=== PATIENT | male | born 1955 ===

== ENCOUNTER → 2021-12-15 09:01 | Outpatient (BNVA) | payer MEDICARE, SELFPAY | PROVIDERS: Referring Provider Family Medicine; Visit Provider Nurse Practitioner Family | DX: M67.441 Ganglion, right hand (principal) | CPT/HCPCS: 73130; 99213; 99214 ==

== ENCOUNTER → 2022-02-11 10:10 | Outpatient (BNVA) | payer MEDICARE, SELFPAY | PROVIDERS: Visit Provider Nurse Practitioner Family | DX: M79.641 Pain in right hand (principal) | CPT/HCPCS: 99214 ==

== ENCOUNTER 2022-03-04 10:11 | Day surgery (SDC) | payer MEDICARE, SELFPAY ==
[2022-03-02 13:16] VITALS: BMI 24.8
[2022-03-04] MEDS: sodium chloride 0.9% 1,000 ML 30 ML IV (10:51)
--- NOTE | 2022-03-04 11:24 | ANES.PREANE2 ---
Pre-Anesthetic Assessment Height/Weight: Height 1.68 m Weight 69.853 kg O2 Del Method 03/04/22 10:34 Preop Diagnosis: Ganglion cyst right hand Operation Date: 03/04/22 11:40 Proposed Procedures p Ganglion cyst removal: 34652,M67.40(Right) - Reddy Bolanos MD Familial anesthetic complications: None Was Beta Evert taken within 24 hours: N/A Was Clonidine taken within 24 hours: N/A Last intake: Intake Last Liquid Date 03/03/22 Last Liquid Time 22:30 Last Solid Date 03/03/22 Last Solid Time 22:30 Social Tobacco and No alcohol Exam alert, oriented x 3, clear to auscultation bilaterally and regular rate & rhythm Airway Mallampati: Class II Dentition: false CV/HEM Hypertension Anesthetic Plan ASA status: 2 Anesthesia: MAC Risk of > 500 ml blood loss (7ml/kg in children): No Medications/Allergies Home Medications Medication Instructions Recorded Confirmed Last Taken Type lisinopril 20 mg tablet 20 mg PO DAILY 12/15/21 03/04/22 03/04/22 History Allergies Allergy/AdvReac Type Severity Reaction Status Date / Time No Known Allergies Allergy Verified 03/02/22 13:14 Current Medications Generic Name Dose Route Start Last Admin Trade Name Freq PRN Reason Stop Dose Admin Sodium Chloride 1,000 mls @ 30 mls/hr 03/04/22 10:30 03/04/22 10:51 Sodium Chloride 0.9% IV 03/05/22 10:29 30 mls/hr .Q24H HALIE Administration PFSH Anesthesia Social History (Updated 12/15/21 @ 09:12 by Alta Talley LPN) Smoking and tobacco status: current every day smoker Quit status (tobacco): considering quitting Second hand smoke exposure: Yes Smoking risk assessment/counseling performed?: No Alcohol intake: never Adopted: No Caregiver/support person: No Lives independently: Yes Housing: House Number of children: 2 Number of grandchildren: 12 Highest education level completed: GED or Equivalent service: No Current occupational status: employed Current occupation: [employer] Current occupational exposures/hazards: No Pets and animals: No Sexually active: Yes Current gender identity: Male Special tomas needs: No Agree to transfusion: No Data Anesthesia : 03/04/22 10:55 BMP 03/04/22 10:55 Chloride 103 Carbon Dioxide 25 BUN 17 Creatinine 0.9 Calcium 9.4 Cardiac Studies: No Data to Display
[2022-03-04] MEDS: ceFAZolin 2,000 MG in sodium chloride 0.9% (plus) 50 ML 100 MG IV (13:13)
--- NOTE | 2022-03-04 13:14 | W.PM.OPSUD ---
Surgery/Procedure H&P Update DATE OF PROCEDURE: March 04, 2022 DATE H&P PERFORMED: 02/11/22 H&P UPDATE INFORMATION: I have reviewed H&P completed within last 30 days PREOP DIAGNOSIS: Ganglion cyst right hand PLANNED PROCEDURE: Operation Date: 03/04/22 11:40 Proposed Procedures p Ganglion cyst removal: 81173,M67.40(Right) - Reddy Bolanos MD
[2022-03-04 13:55] VITALS: BP 120/66; PULSE 64; RESP 14; TEMP 36.2; O2SAT 97
--- NOTE | 2022-03-04 13:56 | PM.OP ---
Operative Report Date of procedure: March 04, 2022 Pre-op diagnosis: Preop Diagnosis Ganglion cyst right hand Post-op diagnosis: same Procedure done: Excision mass right right wrist Pathology: A 5 mm in diameter solid mass was sent to pathology Surgeon: Reddy Bolanos Anesthesia: MAC Estimated blood loss (mL): 12 Findings: The patient had a solid adherent to the fascia of the volar radial wrist overlying the flexor carpi radialis tendon. Condition: stable Disposition: PACU Procedure: Michael was taken to the operating room and sedation provided by anesthesia. An S shaped incision was made over the volar radial wrist. Dissection was carried down with scissors revealing the firm mass adherent to the deep fascia and the sheath of the FCR tendon. Utilizing scissors the mass was dissected free off of the adherent tissues. It was sent to pathology. Skin edges were infiltrated with 2 cc of half percent Marcaine. Skin edges were closed with 3-0 Prolene Xeroflo gauze, 4 x 4's, web roll, and a compressive Blair were applied. He was placed in a volar splint. He was taken recovery room in stable condition.
[2022-03-04 14:00] VITALS: BP 126/65; PULSE 60; RESP 14; O2SAT 95
[2022-03-04 14:05] VITALS: BP 113/57; PULSE 61; RESP 16; O2SAT 94
[2022-03-04 14:10] VITALS: BP 116/64; PULSE 61; RESP 18; TEMP 36.6; O2SAT 94
[2022-03-04 14:19] VITALS: BP 112/60; PULSE 57; RESP 18; TEMP 37.1; O2SAT 96
[2022-03-04 14:32] VITALS: BP 120/68; PULSE 56; RESP 18; TEMP 37.1; O2SAT 94
--- NOTE | 2022-03-04 16:00 | ANE.PACU2 ---
Inpatient post-anesthesia follow up: Airway intact: Yes Vital signs: Temperature 98.7 F Pulse Rate 56 Respiratory Rate 18 Blood Pressure 120/68 Pulse Oximetry 94 Oxygen Delivery Me thod Room Air Oxygen Flow Rate 6 Fraction of Inspir ed Oxygen Hydration adequate: Yes Nausea and vomiting: No Pain level: 1 Mental status: Baseline
== END 2022-03-04 14:41 | disposition home or self-care (01) ==
PROVIDERS: PCP Physician Assistant; Visit Provider Orthopaedic Surgery
PROC: (CPT 26160; principal; 2022-03-04 11:30)
DX: M67.441 Ganglion, right hand (principal); I10 Essential (primary) hypertension; F17.210 Nicotine dependence, cigarettes, uncomplicated
CPT/HCPCS: 26160; 36415; 88304; J0690; J2704; J3010; J3490; J7030

== ENCOUNTER → 2022-03-09 09:36 | Outpatient (BNVA) | payer MEDICARE, SELFPAY | PROVIDERS: PCP Physician Assistant; Visit Provider Nurse Practitioner Family | DX: Z98.890 Other specified postprocedural states (principal) | CPT/HCPCS: 99024 ==